=== PATIENT | male | born 1955 | race Caucasian/White ===

== ENCOUNTER → 2018-08-03 | Outpatient (CLI) | payer OTHER ==
--- NOTE | 2018-08-06 13:57 | PCVCIMAG ---
APPROVED REPORT Study performed: 08/03/2018 15:03:50 Exam: Stress Echocardiogram Indication: CAD s/p PCI, smoker, htn, hlp Patient Location: Echo lab Stress Nurse: Ashly Moore RN Status: routine Ht: 5 ft 10 in HR: 75 bpm BP: 126/68 mmHg Rhythm: Bifascicular block Procedure The patient underwent an Exercise Stress Test using the Joss Protocol. Blood pressure, heart rate, and EKG were monitored. An Echocardiogram was performed by hydro technician in four stages in quad fashion. At peak stress, four selected images were obtained and placed side by side with resting images for comparison. Stress Test Details Stress Test: Exercise stress testing was performed using a Joss protocol. HR Resting HR: 75 bpmMax Heart Rate (APMHR): 157 bpm Max HR Achieved: 144 bpmTarget HR (85% APMHR): 133 bpm % of APMHR: 91 Recovery HR: 101 bpm HR response to stress: Normal HR response to stress BP Resting BP: 126/68 mmHg Max BP: 184/72 mmHg Recovery BP: 136/68 mmHg BP response to stress: Normal blood pressure response to stress. ECG Resting ECG: Bifascicular block Stress ECG: Bifascicular block ST Change: Nondiagnostic resting ST abnormalities Arrhythmia: rare PVC or PAC Recovery ECG: Bifascicular block Recovery ST Change: Normal Recovery Arrhythmia: None Clinical Reason for Termination: Maximal effort, Dyspnea Stress Symptoms: Dyspnea Exercise duration: 12 min sec Highest Stage Achieved: Stage 4: 4.2 mph at 16% grade. Exercise capacity: 13.7 METs Overall Exercise Capacity for Age: Good Scale: Sedentary Angina Score: None Pre-Stress Echo The resting Echocardiogram showed normal left ventricular contractility with an estimated Ejection Fraction of about >55%. Normal wall motion in all segments on baseline images. Post-Stress Echo The stress Echocardiogram showed normal left ventricular contractility with an estimated Ejection Fraction of about 65%. Normal augmentation of wall motion in all segments on post stress images. Clinical No clinical or ECG evidence for ischemia. Conclusion Clinical Response: Non-ischemic Exercise Capacity: Superior Stress ECG Response: Non-ischemic Stress Echo Images: Non-ischemic The left ventricle is normal in size and wall thickness in both the rest and stress images. Other Information Study Quality: Adequate <Conclusion> The left ventricle is normal in size and wall thickness in both the rest and stress images.
== END | disposition home or self-care (01) ==
LOC: PCVCIMAG 15:15
PROVIDERS: ATTEND Internal Medicine Cardiovascular Disease
DX: I25.10 Atherosclerotic heart disease of native coronary artery without angina pectoris (principal); I10 Essential (primary) hypertension; E78.5 Hyperlipidemia, unspecified; F17.200 Nicotine dependence, unspecified, uncomplicated
CPT/HCPCS: 93325; 93351